=== PATIENT | male | born 1990 ===

== ENCOUNTER 2017-12-22 11:07 | Outpatient (CLI) | payer OTHER | END 2017-12-22 11:10 | disposition home or self-care (01) | LOC: LAB 11:07 | DX: R50.9 Fever, unspecified (principal) ==

== ENCOUNTER → 2017-12-22 | Outpatient (CLI) | payer OTHER ==
[~2017-12-22] MED LIST: ALLEGRA ALLERGY60 MG; AMOX1TAB12 PO
== END | disposition home or self-care (01) ==
LOC: PPHC 09:46 → EDBD 09:46
DX: B34.9 Viral infection, unspecified (principal)